=== PATIENT | male | born 1955 | race Caucasian/White ===

== ENCOUNTER 2018-11-24 12:00 | Day surgery (SDC) | payer OTHER, BC | END 2018-11-24 18:07 | disposition home or self-care (01) | LOC: GIL 12:00 | DX: Z12.11 Encounter for screening for malignant neoplasm of colon (principal); K64.8 Other hemorrhoids; K57.30 Diverticulosis of large intestine without perforation or abscess without bleeding | CPT/HCPCS: 45380; 88305 ==